=== PATIENT | female | born 1970 | race Caucasian/White ===

== ENCOUNTER 2016-05-21 19:09 | Emergency (ER) | payer MEDICAID, OTHER ==
[~2016-05-21] VITALS: Ht 149.9 cm; Wt 59.1 kg
[~2016-05-21 19:09] MED LIST: LORA1TAB PO; OXYC20TA26 PO
[2016-05-21 19:11] VITALS: BP 144/79; PULSE 107; RESP 16; TEMP 97.8; O2SAT 95
[2016-05-21] MEDS ORDERED: AMOX500T PO (20:36)
[2016-05-21] MEDS ORDERED: PRED-503 PO (20:36)
[2016-05-21] MEDS ORDERED: ALBU6.7H INH (20:36)
--- NOTE | 2016-05-21 20:46 | PD ---
HPI Chief Complaint: Cold / Flu Symptoms Time Seen by Provider: 20:36 Travel History International Travel<30 days: No Contact w/Intl Traveler<30days: No Traveled to known affect area: No History of Present Illness HPI 45-year-old white female presents to emergency Department with complaints of cough. She states that she has had a cough now for over a month. She has complaints of sore throat at times, pleuritic chest wall pain, dry nonproductive cough, myalgias and general malaise. She also goes on to state that in the last few days she is developed left upper dental pain. No fever chills. No vomiting. No abdominal pain or diarrhea. No dysuria or frequency. No rashes or lesions. PFSH Past Medical History Medical History: Denies Significant Hx Diminished Hearing: No Tetanus Vaccination: Unknown Influenza Vaccination: No ?: Not Tubal Ligation: Yes Past Surgical History Abdominal Surgery: Yes (C SEC) Section: Yes Cholecystectomy: Yes Social History Alcohol Use: Yes (OCC) Tobacco Use: No Substance Use: No Allergies-Medications (Allergen,Severity, Reaction): Coded Allergies: No Known Allergies (Verified , 07/30/12) Reported Meds & Prescriptions Reported Meds & Active Scripts Active Review of Systems Except as stated in HPI: all other systems reviewed are Neg Physical Exam Narrative GENERAL: Well-developed, well-nourished in no acute distress. Nontoxic appearing. HEAD: Normocephalic, atraumatic. EYES: Pupils equal round and reactive. Extraocular motions intact. No scleral icterus. No injection or drainage. ENT: TMs clear without erythema. The external auditory canals clear. Nose: clear . Posterior pharynx is pink and moist. No tonsillar edema or exudate. Uvula midline. Airway patent. Patient has poor dentition. Multiple dental caries. NECK: Trachea midline.Supple, nontender, moves head freely. No central bony tenderness or spasm. CARDIOVASCULAR: Regular rate and rhythm without murmurs, gallops, or rubs. RESPIRATORY: Clear to auscultation. Breath sounds equal bilaterally. No wheezes , rales, or rhonchi. GASTROINTESTINAL: Abdomen soft, non-tender, nondistended. No hepato-splenomegaly , or palpable masses. No guarding. EXTREMITIES: No clubbing, cyanosis, or edema. No joint tenderness, effusion, or edema noted. BACK: Nontender without deformity or crepitance. No flank tenderness. Data Data Last Documented VS Vital Signs Date Time Temp Pulse Resp B/P Pulse Ox O2 Delivery O2 Flow Rate FiO2 05/21/16 19:11 97.8 107 16 144/79 95 Room Air MDM Medical Decision Making Medical Screen Exam Complete: Yes Emergency Medical Condition: Yes Medical Record Reviewed: Yes Differential Diagnosis MDM: High Differential diagnoses: Pneumonia, bronchitis, URI, asthma, RAD, dental abscess Narrative Course This is cough and dental caries Diagnosis Primary Impression: Cough Additional Impression: Dental caries Patient Instructions: General Instructions Additional Instructions: Rest. Increase fluids. Tylenol and Advil. Robitussin-DM. Amoxicillin, prednisone, and albuterol. Maramec oil on cotton balls. Follow-up with a dentist JOEL Followup with your DrAnnalisa in one week. Return to the ER for any problems. Med/Other Pt SpecificInfo: Prescription(s) given Scripts Amoxicillin 500 Mg Tab1,000 Mg PO BID #40 TAB Prov:Dhaval Hope MD 05/21/16 Albuterol 6.7 GM Inh (Proventil Hfa 6.7 GM Inh)90 Mcg/Act Aer2 Puff INH Q6H PRN (SHORTNESS OF BREATH) #1 INHALER Prov:Dhaval Hope MD 05/21/16 Prednisone (Deltasone)20 Mg Tab20 Mg PO BID #10 TAB Prov:Dhaval Hope MD 05/21/16 Disposition: 01 DISCHARGE HOME Condition: Stable Federico Srinivasan May 21, 2016 20:46
== END 2016-05-21 21:08 | disposition home or self-care (01) ==
LOC: NEPB 19:09
DX: R05 Cough (principal); K02.9 Dental caries, unspecified
CPT/HCPCS: 99283

== ENCOUNTER 2017-05-18 11:16 | Inpatient (IN) | payer MEDICAID ==
[~2017-05-18] VITALS: Ht 149.9 cm; Wt 65.0 kg
[~2017-05-18 11:16] MED LIST changes: +ALBU6.7H INH; +AMOX500T PO; -LORA1TAB PO; -OXYC20TA26 PO; +PRED-503 PO
[2017-05-18 11:18] VITALS: BP 146/101; PULSE 111; RESP 25; TEMP 98.7
[2017-05-18] MEDS ORDERED: ONDANSETRON HCL 4 MG/2 ML VIAL ONE (11:26)
[2017-05-18] MEDS ORDERED: MORPHINE SULFATE 4 MG/ML INJ ONE (11:26)
[2017-05-18 11:40] VITALS: BP 175/94; PULSE 125
[2017-05-18] MEDS ORDERED: SODIUM CHLOR 0.9% 250 ML INJ 250 ML IV ONE (11:45)
[2017-05-18] MEDS ORDERED: SODIUM CHLOR 0.9% 1000 ML INJ 1,000 ML IV ONE (11:45)
[2017-05-18] MEDS ORDERED: MORPHINE SULFATE 4 MG/ML INJ IV PUSH ONE (11:45)
[2017-05-18 11:53] LABS: AUTOMATED NEUTROPHIL # 3.8 TH/MM3 (1.8-7.7); BASOPHIL # 0.1 TH/MM3 (0-0.2); EOSINOPHIL # 0.1 TH/MM3 (0-0.4); EOSINOPHIL % 1.7 % (0.0-4.0); HEMATOCRIT 35.6 % (35.0-46.0); HEMOGLOBIN 12.4 GM/DL (11.6-15.3); LYMPH % 30.7 % (9.0-44.0); LYMPHOCYTE # 2.2 TH/MM3 (1.0-4.8); MEAN CELL VOLUME 80.4 FL (80.0-100.0); MEAN CORPUSCULAR HEMOGLOBIN 28.1 PG (27.0-34.0); MEAN PLATELET VOLUME 7.9 FL (7.0-11.0); MONO % 13.6 % (0.0-8.0); PLATELET COUNT 415 TH/MM3 (150-450); RED BLOOD COUNT 4.42 MIL/MM3 (4.00-5.30); RED CELL DISTRIBUTION WIDTH 13.7 % (11.6-17.2); WHITE BLOOD COUNT 7.1 TH/MM3 (4.0-11.0)
[2017-05-18] MEDS ORDERED: DEXAMETHASONE SOD PHOS 4 MG/ML VIAL IV ONE (12:00)
[2017-05-18] MEDS ORDERED: ONDANSETRON HCL 4 MG/2 ML VIAL IV ONE (12:00)
[2017-05-18] MEDS ORDERED: ceFAZolin INJ 1,000 MG VIAL IV ONE ×2 (12:00→13:27)
[2017-05-18] MEDS ORDERED: SUCCINYLCHOLINE CHLORIDE 200 MG/10 ML VIAL IV ONE (12:00)
[2017-05-18] MEDS ORDERED: PHENYLEPH/NS 1000 MCG/10 ML SYR IV ONE (12:00)
[2017-05-18] MEDS ORDERED: LIDOCAINE HCL 1% PF 5 ML SYRINGE OTHER ONE (12:00)
[2017-05-18] MEDS ORDERED: NORMOSOL R INJ 1,000 ML IV ONE (12:00)
[2017-05-18] MEDS ORDERED: PROPOFOL 200 MG/20 ML AMP IV ONE (12:00)
[2017-05-18 12:03] LABS: PROTHROMBIN TIME - PATIENT 10.2 SEC (9.8-11.6)
[2017-05-18 12:14] LABS: BICARBONATE 25.2 MEQ/L (21.0-32.0); CALCIUM 8.7 MG/DL (8.5-10.1); CREATININE 0.85 MG/DL (0.50-1.00)
--- NOTE | 2017-05-18 12:16 | PD ---
HPI Chief Complaint: Laceration/Skin Injury Time Seen by Provider: 11:33 Travel History International Travel<30 days: No Contact w/Intl Traveler<30days: No Traveled to known affect area: No History of Present Illness HPI 46-year-old female was brought in emergently after she accidentally lacerated her left wrist right on the distal radius which caused immense amount of bleeding at the scene. EMS was called. Fire initially responded. As per them the bleeding looked arterial. They put a pressure dressing which caused the bleeding to continue in spite at which point they applied a tourniquet. Upon EMS arrival patient was brought into the emergency room. Patient has been complaining of pain of her arm distal to the tourniquet. Patient appears to be anxious. She does not remember you her last shot. Vital signs are otherwise stable. [facility] Past Medical History Narrative Medical List of her past medical, surgical, social and family history is reviewed from the nursing note. Diminished Hearing: No ?: Not Tubal Ligation: Yes Past Surgical History Abdominal Surgery: Yes (C SEC) Section: Yes Cholecystectomy: Yes Social History Alcohol Use: Yes (OCC) Tobacco Use: No Substance Use: No Allergies-Medications (Allergen,Severity, Reaction): Coded Allergies: No Known Allergies (Verified Allergy, Unknown, 05/18/17) Comments No known drug allergies Reported Meds & Prescriptions Reported Meds & Active Scripts Active Amoxicillin 500 Mg Tab 1,000 Mg PO BID Proventil Hfa 6.7 GM Inh (Albuterol Sulfate) 90 Mcg/Act Aer 2 Puff INH Q6H PRN Deltasone (Prednisone) 20 Mg Tab 20 Mg PO BID Narrative Medication List of her home medications reviewed from the nursing note. Review of Systems Except as stated in HPI: all other systems reviewed are Neg Physical Exam Narrative GENERAL: Awake, alert, anxious, significant distress SKIN: Focused skin assessment warm/dry. HEAD: Atraumatic. Normocephalic. EYES: Pupils equal and round. No scleral icterus. No injection or drainage. ENT: No nasal bleeding or discharge. Mucous membranes pink and moist. NECK: Trachea midline. No JVD. CARDIOVASCULAR: Regular rate and rhythm. No murmur appreciated. RESPIRATORY: No accessory muscle use. Clear to auscultation. Breath sounds equal bilaterally. GASTROINTESTINAL: Abdomen soft, non-tender, nondistended. Hepatic and splenic margins not palpable. MUSCULOSKELETAL: No obvious deformities. No clubbing. No cyanosis. No edema. Tourniquet applied to the left forearm distal to the elbow. The fingers appear to be dusky in color. There is a bulky dressing applied on the wrist and the rest of the forearm. As the dressing is taken down a 5 cm laceration vertical is noticed bite on the wrist over the distal radius. As the tourniquet is slowly loosened blood is noticed to be squirting out. NEUROLOGICAL: Awake and alert. No obvious cranial nerve deficits. Motor grossly within normal limits. Normal speech. PSYCHIATRIC: Appropriate mood and affect; insight and judgment normal. Data Data Last Documented VS Vital Signs Date Time Temp Pulse Resp B/P (MAP) Pulse Ox O2 Delivery O2 Flow Rate FiO2 05/18/17 11:40 125 175/94 (121) 05/18/17 11:18 98.7 25 Orders Orders Ondansetron Inj (Zofran Inj) (05/18/17 11:26) Morphine Inj (Morphine Inj) (05/18/17 11:26) Complete Blood Count With Diff (05/18/17 11:33) Basic Metabolic Panel (Bmp) (05/18/17 11:33) Prothrombin Time / Inr (Pt) (05/18/17 11:33) Type And Screen (05/18/17 11:33) Blood Product Administration (05/18/17 11:33) Sodium Chlor 0.9% 250 Ml Inj (Ns 250 Ml (05/18/17 11:45) Sodium Chlor 0.9% 1000 Ml Inj (Ns 1000 M (05/18/17 11:45) Morphine Inj (Morphine Inj) (05/18/17 11:45) Admit Order (Ed Use Only) (05/18/17 12:10) Labs Laboratory Tests Test 05/18/17 11:37 White Blood Count 7.1 TH/MM3 Red Blood Count 4.42 MIL/MM3 Hemoglobin 12.4 GM/DL Hematocrit 35.6 % Mean Corpuscular Volume 80.4 FL Mean Corpuscular Hemoglobin 28.1 PG Mean Corpuscular Hemoglobin Concent 35.0 % Red Cell Distribution Width 13.7 % Platelet Count 415 TH/MM3 Mean Platelet Volume 7.9 FL Neutrophils (%) (Auto) 53.0 % Lymphocytes (%) (Auto) 30.7 % Monocytes (%) (Auto) 13.6 % Eosinophils (%) (Auto) 1.7 % Basophils (%) (Auto) 1.0 % Neutrophils # (Auto) 3.8 TH/MM3 Lymphocytes # (Auto) 2.2 TH/MM3 Monocytes # (Auto) 1.0 TH/MM3 Eosinophils # (Auto) 0.1 TH/MM3 Basophils # (Auto) 0.1 TH/MM3 CBC Comment DIFF FINAL Differential Comment Prothrombin Time 10.2 SEC Prothromb Time International Ratio 1.0 RATIO Blood Urea Nitrogen 7 MG/DL Creatinine 0.85 MG/DL Random Glucose 160 MG/DL Calcium Level 8.7 MG/DL Sodium Level 135 MEQ/L Potassium Level 3.1 MEQ/L Chloride Level 101 MEQ/L Carbon Dioxide Level 25.2 MEQ/L Anion Gap 9 MEQ/L Estimat Glomerular Filtration Rate 72 ML/MIN MDM Medical Decision Making Medical Screen Exam Complete: Yes Emergency Medical Condition: Yes Medical Record Reviewed: Yes Differential Diagnosis Radial artery laceration Narrative Course 12:14 PM initially the hand surgeon was contacted as per him until bleed should go to [place] surgeon. I contacted the vascular surgeon Dr. Giles and he will be taking the patient to the operating room. Dr. Singh was in the department for a trauma and he took the tourniquet down and the dressing down. As per him the bleeding had stopped at that point. He has put a small pressure dressing on the wound. Patient received pain medication and tetanus. Critical Care Narrative Aggregate critical care time was 30 minutes. Time to perform other separately billable procedures was not included in the critical care time. My time did not include minutes spent treating any other patients simultaneously or on activities that did not directly contribute to the patient's treatment. The services I provided to this patient were to treat and/or prevent clinically significant deterioration that could result in: Arterial bleed I provided critical care services requiring my management, as noted below: Chart data review, documentation time, medication orders and management, vital sign assessments/reviewing monitor data, ordering and reviewing lab tests, ordering and interpreting/reviewing x-rays and diagnostic studies, care of the patient and discussion of the patient with the admitting physicians. Procedures EKG Prior to Arrival: No Physician Communication Physician Communication Dr. Giles, Dr. Rodríguez, Dr. Singh Diagnosis Primary Impression: Laceration of radial artery Qualified Codes: S55.112A - Laceration of radial artery at forearm level, left arm, initial encounter Admitting Information Admitting Physician Requests: Admit Carlos Alanis MD May 18, 2017 12:16
[2017-05-18] MEDS ORDERED: TETANUS/DIPHTHERIA TOXOID ADULT 0.5 ML VIAL IM ONE (12:30)
[2017-05-18] MEDS ORDERED: HEPARIN SODIUM - IV 10,000 UNITS/10 ML VIAL ONE (13:27)
[2017-05-18] MEDS ORDERED: *MEPERIDINE 25 MG INJ VIAL PERIprocedural Use ONLY ONE (14:02)
[2017-05-18] MEDS ORDERED: DO NOT ADM ANY ANTICOAGULANT DRUGS PRN (14:05)
[2017-05-18] MEDS ORDERED: *morphine SULFATE 10 MG/ML PERIprocedure ONLY ONE (14:58)
[2017-05-18 16:33] VITALS: BP 135/94; PULSE 84; RESP 20; TEMP 97.3; O2SAT 100
--- NOTE | 2017-05-18 16:44 | MP ---
cc: Roly Giles MD DATE OF OPERATION: 05/18/2017 PREOPERATIVE DIAGNOSIS: Laceration of the left wrist. POSTOPERATIVE DIAGNOSIS: Laceration of the left wrist and lacerations of the left cephalic vein. OPERATIVE PROCEDURE: Exploration of the left wrist, ligation of cephalic vein. SURGEON: Roly Giles MD ANESTHESIA: General. ESTIMATED BLOOD LOSS: Minimal. PROCEDURE IN DETAIL: Patient prepped and draped in usual fashion. The area uncovered, patient has a laceration that extends somewhat obliquely over the wrist clearly inflicted by sudden motion. Patient was apparently cutting some belt for her daughter. The area is irrigated. The arteries are checked. The radial artery is intact, ulnar artery is intact. Blood flow to the hand is fully intact. Capillary refill is normal. Patient has a laceration of the cephalic vein. This one is ligated with 3-0 silk. Area irrigated and closed with 4-0 Monocryl. Patient tolerated the procedure well. MD MING Boyle/brenda , 01:47 PM , 04:43 PM
== END 2017-05-18 16:30 | disposition home or self-care (01) | DRG 909 ==
LOC: HOR 11:16 → NEDA 12:10
PROVIDERS: ADMIT Surgery; ATTEND Surgery
PROC: 05Q Upper Veins, Repair (ICD-10-PCS; principal; 2017-05-18 12:48)
DX: S65.8 Injury of other blood vessels at wrist and hand level (principal); S61.512A Laceration without foreign body of left wrist, initial encounter; Z87.891 Personal history of nicotine dependence; W45.8XXA Other foreign body or object entering through skin, initial encounter
CPT/HCPCS: 80048; 85025; 85610; 86850; 86900; 86901; 86920; 96374; 96375; J0330; J0690; J1100; J1644; J2175; J2270; J2370; J2405; J3010; J7030